=== PATIENT | female | born 1950 | race Caucasian/White ===

== ENCOUNTER 2016-11-17 12:43 | Emergency (ER) | payer MEDICARE ==
[2016-11-17 12:52] VITALS: BP 137/62
--- NOTE | 2016-11-17 13:57 | ED ---
Abdominal Pain/Female - HPI Summary HPI Summary: Patient presents to the with CC of left sided flank pain radiating to the LLQ with symptoms of incompletion of urination. Hx of colon resection and diverticulitis. She denies N/V/C/D. Denies fevers, sweats or chills. Denies urinary burning, urgency or frequency. She has never had a kidney stone before. The pain is 5/10, constant, described as an ache, better with rest and worse with movement. She is eating and drinking OK and denies any other complaints at this time. Last documented CT scan 2009. She is otherwise healthy , endorses multiple allergies and is a non-smoker. - History of Current Complaint Chief Complaint: UCAbdominalPain Stated Complaint: ABDOMINAL PAIN Time Seen by Provider: 11/17/16 12:58 Hx Obtained From: Patient ?: No Onset/Duration: Sudden Onset Timing: Constant Severity Initially: Moderate Severity Currently: Moderate Pain Intensity: 5 Pain Scale Used: 0-10 Numeric Location: Flank Radiates: Yes Radiates to: LLQ Character: Sharp, Cramping Aggravating Factor(s): Nothing Alleviating Factor(s): Position Associated Signs and Symptoms: Positive: Urinary Symptoms - Risk Factors Ectopic Risk Factor: Maternal Age ^ 30 Ovarian Torsion Risk Factor: Negative Allergies/Adverse Reactions: Allergies Allergy/AdvReac Type Severity Reaction Status Date / Time Acetaminophen [From Percocet] Allergy Rash Verified 11/17/16 12:47 Morphine Allergy LOWERED Verified 11/17/16 12:47 RESP RATE Oxycodone [From Percocet] Allergy Rash Verified 11/17/16 12:47 Penicillins [PCN] Allergy Rash Verified 11/17/16 12:47 Sulfa Antibiotics Allergy Rash Verified 11/17/16 12:47 PMH/Surg Hx/FS Hx/Imm Hx Previously Healthy: Yes Endocrine/Hematology History: Reports: 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 Denies: Hx Diabetes Cardiovascular History: Denies: Hx Hypertension GI History: Reports: Other GI Disorders - DIVERTICULITIS- HAD SURGERY FOR- NO PROBLEMS SINCE History: Denies: Hx Renal Disease Musculoskeletal History: Reports: Other Musculoskeletal History - 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 BUT ALSO AFFECTS THE LEFT Sensory History: Reports: Hx Contacts or Glasses - GLASSES-DOESN'T WEAR ALL THE TIME Denies: Hx Hearing Aid Opthamlomology History: Reports: Hx Contacts or Glasses - GLASSES-DOESN'T WEAR ALL THE TIME Neurological History: Reports: Hx Migraine - MONTHLY- VISUAL - Cancer History Cancer Type, Location and Year: Basal cell skin, 2004 Hx Chemotherapy: No Hx Radiation Therapy: No - Surgical History Surgery Procedure, Year, and Place: Colon resection 2010 [facility] [place] [address] [place], R inguinal hernia repair with patch, several surgeries for endometriosis Hx Anesthesia Reactions: Yes - STATES RECEIVED MORPHINE- LOWERED RESP RATE- STATES HAD TO REVERSE THE MED - Immunization History Hx Pertussis Vaccination: No Immunizations Up to Date: Unable to Obtain/Confirm Infectious Disease History: No Infectious Disease History: Denies: Hx Clostridium Difficile, Hx Hepatitis, Hx Human Immunodeficiency Virus (HIV), Hx of Known/Suspected MRSA, Hx Shingles, Hx Tuberculosis, Hx Known/ Suspected VRE, Hx Known/Suspected VRSA, History Other Infectious Disease, Traveled Outside the in Last 30 Days - Social History Occupation: Unemployed Lives: With Family Alcohol Use: None Hx Substance Use: No Substance Use Type: Reports: None Hx Tobacco Use: No Smoking Status (MU): Never Smoked Tobacco Review of Systems Constitutional: Negative Eyes: Negative Cardiovascular: Negative Respiratory: Negative Positive: Abdominal Pain Positive: other - feeling of incomplete voiding Musculoskeletal: Negative Skin: Negative Neurological: Negative Psychological: Normal All Other Systems Reviewed And Are Negative: Yes Physical Exam Triage Information Reviewed: Yes Vital Signs On Initial Exam: Initial Vitals Temp Pulse Resp BP Pulse Ox 97 F 58 17 137/62 100 11/17/16 12:48 11/17/16 12:48 11/17/16 12:48 11/17/16 12:48 11/17/16 12:48 Vital Signs Reviewed: Yes Appearance: Positive: Well-Appearing, No Pain Distress, Well-Nourished Skin: Positive: Warm, Skin Color Reflects Adequate Perfusion Head/Face: Positive: Normal Head/Face Inspection, TMJ Tenderness Eyes: Positive: Normal, RAMAN, Conjunctiva Clear Neck: Positive: Supple, Nontender, No Lymphadenopathy Respiratory/Lung Sounds: Positive: Clear to Auscultation, Breath Sounds Present Cardiovascular: Positive: Normal, RRR, Pulses are Symmetrical in both Upper and Lower Extremities Abdomen Description: Positive: Soft, Other: - tenderness in the LLQ and flank pain Bowel Sounds: Positive: Present Musculoskeletal: Positive: Strength/ROM Intact Neurological: Positive: Sensory/Motor Intact, Speech Normal Psychiatric: Positive: Normal AVPU Assessment: Alert - [place] Coma Scale Best Eye Response: 4 - Spontaneous Best Motor Response: 6 - Obeys Commands Best Verbal Response: 5 - Oriented Diagnostics - Vital Signs Vital Signs Temp Pulse Resp BP Pulse Ox 11/17/16 12:48 97 F 58 17 137/62 100 - Laboratory Lab Results: Lab Results 11/17/16 Range/Units 13:23 POC Urine Color Yellow POC Urine Clarity Clear POC Urine pH 6.0 (5-9) POC Ur Specif [place] <= 1.005 L (1.010-1.030) POC Urine Protein Negative (Negative) POC Ur Glucose (UA) Negative (Negative) POC Urine Ketones Negative (Negative) POC Urine Blood Negative (Negative) POC Urine Nitrite Negative (Negative) POC Urine Bilirubin Negative (Negative) POC Urine Urobilinogen 0.2 (Negative) POC U Leukocyte Esteras Negative (Negative) Lab Statement: Any lab studies that have been ordered have been reviewed, and results considered in the medical decision making process. Abdominal Pain Fem Course/Dx - Course Course Of Treatment: Pain in left flank radiating to the LLQ with feelings of incomplete voiding. No hx of kidney stone; + hx of diverticulitis and colon resection. Based on symptoms and with the imaging available in the UC, decided a CT abd/pelvis without contrast to look for stone since that was most likely dx. However, UA negative and CT showed (below). D/t history of tic and resection, she will IV contrast and labs to check kidney function prior to image and assess colitis. Patient is made aware and is OK to follow up in the ED today. IMPRESSION: 1. Although incompletely evaluated without IV or oral contrast, there appears to be a. segment of mild wall thickening and colitis involving the distal transverse colon. extending to the descending colon. Please correlate to signs and symptoms of colitis. 2. Scattered colonic diverticula without focal inflammatory change. 3. Additional chronic, degenerative and iatrogenic findings described in the body of the. report. - Diagnoses Differential Diagnosis: Positive: Bowel Obstruction, Constipation, Diverticulitis, Renal Colic Provider Diagnoses: Abdominal pain Discharge - Discharge Plan Condition: Stable Disposition: HOME Patient Education Materials: Abdominal Pain (ED), Colitis (ED) Referrals: Kevin Sears MD [Primary Care Provider] - Additional Instructions: Please follow up in the Emergency Room for better imaging.
--- NOTE | 2016-11-17 14:13 | RAD ---
CLINICAL HISTORY: Left flank pain COMPARISON: Similar CT examination dated July 17, 2014 TECHNIQUE: Noncontrast CT examination of the abdomen and pelvis from the lung bases through the initial tuberosities. FINDINGS: VISUALIZED LUNG BASES: The visualized lung bases are grossly clear. There is no pleural effusion. ABDOMEN AND PELVIS: Evaluation of the solid organs and vasculature is limited without intravenous contrast. The liver, spleen, pancreas and adrenal glands are grossly normal in appearance. The gallbladder is normal. The kidneys are normal in appearance without focal mass, calcification or signs of hydronephrosis. The small and large bowel are not distended.The patient's normal appendix is identified in the right lower quadrant with gas in the lumen measuring 5 mm in diameter (image 134). There is surgical material at the rectosigmoid colon presumably at the anastomosis site. Scattered rectosigmoid diverticula are seen, some with inspissated contrast but none exhibit focal inflammatory change. At the distal transverse colon extending to the descending colon there is mild bowel wall thickening measuring up to 7 mm in diameter (for example axial image 54). There is very mild pericolonic infiltration of the mesenteric fat. There is no gross retroperitoneal or mesenteric lymphadenopathy. The pelvic viscera is normal in appearance. The mildly calcified abdominal aorta and iliac arteries are normal in course and diameter. Degenerative changes include multilevel loss of intervertebral disc height involving the lower thoracic and lumbar spine.There are no sinister bone lesions. IMPRESSION: 1. Although incompletely evaluated without IV or oral contrast, there appears to be a segment of mild wall thickening and colitis involving the distal transverse colon extending to the descending colon. Please correlate to signs and symptoms of colitis. 2. Scattered colonic diverticula without focal inflammatory change. 3. Additional chronic, degenerative and iatrogenic findings described in the body of the report.
== END 2016-11-17 14:45 | disposition home or self-care (01) ==
LOC: UCEAST 12:43
DX: R10.32 Left lower quadrant pain (principal); Z90.49 Acquired absence of other specified parts of digestive tract; Z88.6 Allergy status to analgesic agent; Z88.5 Allergy status to narcotic agent; Z88.0 Allergy status to penicillin; Z88.2 Allergy status to sulfonamides; E05.00 Thyrotoxicosis with diffuse goiter without thyrotoxic crisis or storm; G43.909 Migraine, unspecified, not intractable, without status migrainosus
CPT/HCPCS: 74176; 81003; 99211; G0463

== ENCOUNTER 2016-11-17 15:18 | Emergency (ER) | payer MEDICARE ==
--- NOTE | 2016-11-17 16:57 | ED ---
Abdominal Pain/Female - HPI Summary HPI Summary: Pt sent here by w/ LLQ radiating into Lt lower back x 2 days. Had a normal stool yesterday but ate a lot of tomatoes w/ seeds and granola - worried she overate and this was causing pain so took dulolax last night - had some relief this morning w/ loose stool. Pain is 6/10 now. Denies fever, chills, N/V/D, hematochezia, mucous stools. Report this feels like diverticulitis she's had in the past - sore, aching pain. Better with lying down/leaning back at times. Tried tylenol last night which helped as well. Denies dysuria, vaginal irritation or d/c. H/o ovarian cysts - this does not feel the same. Had CT w/o contrast and U/A at and both were negative for findings of a kidney stone. CT was performed as well which revealed distal transverse colon and descending colon wall thickening, measuring up to 7mm. No leonor inflammation of diverticular however CT was performed w/o contrast. No signs of perforation. 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 Cannot take NSAID's. - History of Current Complaint Chief Complaint: EDAbdPain Stated Complaint: STOMACH/ABD PAIN Time Seen by Provider: 11/17/16 16:27 Hx Obtained From: Patient Pain Intensity: 6 Allergies/Adverse Reactions: Allergies Allergy/AdvReac Type Severity Reaction Status Date / Time Acetaminophen [From Percocet] Allergy Rash Verified 11/17/16 12:47 Morphine Allergy LOWERED Verified 11/17/16 12:47 RESP RATE Oxycodone [From Percocet] Allergy Rash Verified 11/17/16 12:47 Penicillins [PCN] Allergy Rash Verified 11/17/16 12:47 Sulfa Antibiotics Allergy Rash Verified 11/17/16 12:47 PMH/Surg Hx/FS Hx/Imm Hx Previously Healthy: Yes Endocrine/Hematology History: Reports: 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 Denies: Hx Anticoagulant Therapy, Hx Blood Disorders, Hx Diabetes Cardiovascular History: Denies: Hx Hypertension GI History: Reports: Other GI Disorders - DIVERTICULITIS- HAD SURGERY FOR- NO PROBLEMS SINCE History: Denies: Hx Renal Disease Musculoskeletal History: Reports: Other Musculoskeletal History - 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 BUT ALSO AFFECTS THE LEFT Sensory History: Reports: Hx Contacts or Glasses - GLASSES-DOESN'T WEAR ALL THE TIME Denies: Hx Hearing Aid Opthamlomology History: Reports: Hx Contacts or Glasses - GLASSES-DOESN'T WEAR ALL THE TIME Neurological History: Reports: Hx Migraine - MONTHLY- VISUAL - Cancer History Cancer Type, Location and Year: Basal cell skin, 2004 Hx Chemotherapy: No Hx Radiation Therapy: No - Surgical History Surgery Procedure, Year, and Place: Colon resection [place] [facility] [place], R inguinal hernia repair with patch, several surgeries for endometriosis Hx Anesthesia Reactions: Yes - STATES RECEIVED MORPHINE- LOWERED RESP RATE- STATES HAD TO REVERSE THE MED Infectious Disease History: Denies: Hx Clostridium Difficile, Hx Hepatitis, Hx Human Immunodeficiency Virus (HIV), Hx of Known/Suspected MRSA, Hx Shingles, Hx Tuberculosis, Hx Known/ Suspected VRE, Hx Known/Suspected VRSA, History Other Infectious Disease, Traveled Outside the in Last 30 Days - Family History Known Family History: Positive: None - Social History Occupation: Employed Full-time - [employer] Lives: With Family - Alcohol Use: Rare Hx Substance Use: No Substance Use Type: Reports: None Hx Tobacco Use: No Smoking Status (MU): Never Smoked Tobacco Review of Systems Constitutional: Negative Negative: Fever, Chills Eyes: Other - see HPI Cardiovascular: Negative Respiratory: Negative Gastrointestinal: Other - see HPI Negative: burning, dysuria, discharge, frequency Musculoskeletal: Negative Skin: Negative Neurological: Negative Psychological: Normal All Other Systems Reviewed And Are Negative: Yes Physical Exam Triage Information Reviewed: Yes Vital Signs On Initial Exam: Initial Vitals Temp Pulse Resp BP Pulse Ox 96.2 F 54 20 159/74 100 11/17/16 15:26 11/17/16 15:26 11/17/16 15:26 11/17/16 15:26 11/17/16 15:26 Vital Signs Reviewed: Yes Appearance: Positive: Well-Appearing, No Pain Distress, Well-Nourished Skin: Positive: Warm, Dry Head/Face: Positive: Normal Head/Face Inspection Eyes: Positive: Normal, EOMI, Conjunctiva Clear ENT: Positive: Hearing grossly normal, Pharynx normal - mucosa moist Neck: Positive: Supple - no gross thyromegaly Respiratory/Lung Sounds: Positive: Clear to Auscultation, Breath Sounds Present Cardiovascular: Positive: Normal, RRR Abdomen Description: Positive: No Organomegaly, Soft, Other: - TTP over LUQ, Lt side and LLQ - no rebounding. Negative: CVA Tenderness (R), CVA Tenderness (L) Bowel Sounds: Positive: Present Musculoskeletal: Positive: Normal, Strength/ROM Intact Neurological: Positive: Normal, Sensory/Motor Intact, Alert, Oriented to Person Place, Time, CN Intact II-III Psychiatric: Positive: Normal Diagnostics - Vital Signs Vital Signs Temp Pulse Resp BP Pulse Ox 11/17/16 15:26 96.2 F 54 20 159/74 100 - Laboratory Result Diagrams: 11/17/16 17:41 11/17/16 17:41 Lab Statement: Any lab studies that have been ordered have been reviewed, and results considered in the medical decision making process. Abdominal Pain Fem Course/Dx - Course Course Of Treatment: Pt here w/ LLQ pain x 2 days. See HPI for details. Concern for diverticulitis however CT w/o contrast does not reveal inflammation here. Labs are WNL. Discussed option to try bowel rest and return if sx persist or worsen or proceed to CT ab/pelvis w/ contrast - pt and agree w/ the latter. Ordered NS via IV and NPO as her CT w/o contrast shows wall thickening such as colitis. May be early sx of diverticulitis w/ h/o eating seeds/nuts yesterday however could have other disease process unidentified on CT w/o constrast. Offered patient pain meds before leaving - she declines. Signed out to Yodit Wayne PA-C at 19:00. - Diagnoses Provider Diagnoses: Abdominal pain Discharge - Discharge Plan Condition: Stable Disposition: OTHER Discharge Disposition Comment: signed out to Yodit Wayne PA-C
[2016-11-17 17:50] LABS: Hematocrit 38 % (35-47); Mean Corpuscular HGB Conc 34 g/dl (31-36); Mean Corpuscular Hemoglobin 30 pg (27-31); Mean Corpuscular Volume 89 fL (80-97); Mean Platelet Volume 9 um3 (7.4-10.4); Red Blood Count 4.28 10^6/ul (4.0-5.4); Red Cell Distribution Width 13 % (10.5-15); White Blood Count 5.2 10^3/ul (3.5-10.8)
[2016-11-17 18:03] LABS: ALT 13 U/L (7-52); Albumin 4.3 g/dL (3.2-5.2); Alkaline Phosphatase 85 U/L (34-104); Amylase 63 U/L (29-103); BUN/Creatinine Ratio 13.9 (8-20); Blood Urea Nitrogen 10 mg/dL (6-24); C Reactive Protein 1.51 mg/L (< 5.00); CO2 Carbon Dioxide 27 mmol/L (22-32); Calcium 9.9 mg/dL (8.6-10.3); Chloride 103 mmol/L (101-111); EGFR African American 104.2 (>60); Globulin 3.8 g/dL (2-4); Glucose 86 mg/dL (70-100); Lipase 15 U/L (11.0-82.0); Sodium 135 mmol/L (133-145); Total Protein 8.1 g/dL (6.4-8.9)
[2016-11-17 18:14] LABS: Anion Gap 5 mmol/L (2-11)
[2016-11-17] MEDS ORDERED: NS 0.9% 1000 ML* 1,000 ML IV ONE (18:48)
[2016-11-17] MEDS ORDERED: Iohexol 300* (CONTRAST) 10 ML SDV IV ONE (19:13)
--- NOTE | 2016-11-17 21:58 | RAD ---
CLINICAL HISTORY: 2 days of left lower quadrant pain. Relevant surgical history includes colon resection in 2011, right inguinal hernia repair and "several surgeries for endometriosis in the 1990s" COMPARISON: Most recent comparison CT is dated July 17, 2014 TECHNIQUE: Contrast enhanced CT examination of the abdomen and pelvis from the lung bases through the initial tuberosities. The patient received 89 mL Omnipaque 300 intravenously prior to imaging.The patient received oral contrast as well prior to imaging. FINDINGS: VISUALIZED LUNG BASES: The visualized lung bases are grossly clear. There is no pleural effusion. ABDOMEN AND PELVIS: The liver measures 20.5 cm and greatest cephalocaudal projection (coronal image 34). Otherwise the liver is homogenous in attenuation and the surface is smooth. The spleen, pancreas and adrenal glands are grossly normal in appearance. The gallbladder is normal. The kidneys are normal in appearance without focal mass, calcification or signs of hydronephrosis. Contrast is excreted symmetrically and promptly bilaterally on the delayed phase images. The oral contrast has progressed as far as the rectum. The small and large bowel are not distended. The patient's normal appendix is identified in the right lower quadrant with contrast in the lumen (axial image 68 and sagittal image 54). There is surgical material at the rectosigmoid colon. Proximal to this there is a segment of distal colon exhibiting questionable bowel wall thickening up to 5 mm in thickness (axial image 65). There is no significant pericolonic inflammatory stranding or drainable fluid collection. There are scattered rectosigmoid diverticula.. There is no gross retroperitoneal or mesenteric lymphadenopathy. The pelvic viscera is normal in appearance. The abdominal aorta and iliac arteries are normal in course and diameter. Degenerative changes include multilevel loss of intervertebral disc height involving the lower thoracic and lumbar spine.There are no sinister bone lesions. IMPRESSION: 1. There is questionable segment of mild distal colonic bowel wall thickening at the junction of the descending colon and remaining rectosigmoid colon in the presence of scattered diverticula. Potentially this could be due to diverticulitis or other mild colitis or simply be the consequence of underdistention. 2. Mild hepatomegaly is noted of uncertain clinical significance. 3. Additional chronic, degenerative and iatrogenic findings described in the body the report.
--- NOTE | 2016-11-17 23:05 | PN ---
Progress Note - Progress Note Date of Service: 11/17/16 Note: Patient was a sign out from Laure Amaral PA-C pending CT with contrast of abd/ pelvis results. Results showed:1. There is questionable segment of mild distal colonic bowel wall thickening at the junction of the descending colon and remaining rectosigmoid colon in the presence of scattered diverticula. Potentially this could be due to diverticulitis or other mild colitis or simply be the consequence of underdistention. 2. Mild hepatomegaly is noted of uncertain clinical significance. 3. Additional chronic, degenerative and iatrogenic findings described in the body the report. Patient was in minimal pain at time of evaluation. RRR and lung CTA b/l. no new or worsening symptoms since arrival. Aware of current plan. Understands and agrees. Will be given antibiotics, cipro/flagyl at this time as it appears to be the beginnings of diverticulitis with + history including resected colon. Although normal labs without fever or WBC. Discharge: stable, home. follow up GI. aware of worsening signs and symptoms. take medication as prescribed, ibuprofen for pain.
[2016-11-17] MEDS ORDERED: metroNIDAZOLE TAB* 250 MG PO ONE (23:11)
[2016-11-17] MEDS ORDERED: Ciprofloxacin TAB* 500 MG PO ONE (23:11)
[2016-11-18 00:11] VITALS: BP 161/77
== END 2016-11-18 00:11 | disposition home or self-care (01) ==
LOC: ED 15:18
DX: R10.32 Left lower quadrant pain (principal)
CPT/HCPCS: 36415; 74177; 80053; 82150; 83605; 83690; 85025; 86140; 99284; A9270-GY; Q9967

== ENCOUNTER 2018-07-27 19:09 | Emergency (ER) | payer MEDICARE ==
[2018-07-27 20:28] LABS: ABS Basophils 0.1 10^3/ul (0-0.2); ABS Eosinophils 0.2 10^3/ul (0-0.6); ABS Lymphocytes 1.4 10^3/ul (1.0-4.8); ABS Monocytes 0.5 10^3/ul (0-0.8); ABS Nucleated RBC 0 10^3/ul; Hematocrit 37 % (35-47); Hemoglobin 12.6 g/dL (12.0-16.0); Lymphocyte % 23.1 %; Mean Corpuscular HGB Conc 34 g/dL (31-36); Mean Corpuscular Hemoglobin 30 pg (27-31); Mean Corpuscular Volume 89 fL (80-97); Mean Platelet Volume 9.1 fL (7.4-10.4); Nucleated Red Blood Cells % 0; Platelet Count 167 10^3/uL (150-450); Red Blood Count 4.17 10^6 /uL (3.70-4.87); Red Cell Distribution Width 13 % (10.5-15); White Blood Count 6.2 10^3/uL (3.5-10.8)
[2018-07-27 20:36] LABS: INR 1.09 (0.82-1.09)
[2018-07-27 20:50] LABS: Albumin 4.4 g/dL (3.2-5.2); Albumin/Globulin Ratio 1.2 (1-3); C Reactive Protein 11.17 mg/L (<8.01); Calcium 9.7 mg/dL (8.6-10.3); EGFR African American 87.6 (>60); EGFR Non-African American 72.4 (>60); Globulin 3.6 g/dL (2-4); Total Bilirubin 0.4 mg/dL (0.2-1.0)
[2018-07-27] MEDS ORDERED: NS 0.9% 1000 ML** 1,000 ML IV ONE (21:15)
[2018-07-27] MEDS ORDERED: Ondansetron INJ* 2 MG/ML VIAL IV ONE (21:15)
--- NOTE | 2018-07-27 21:47 | ED ---
Abdominal Pain/Female - HPI Summary HPI Summary: Patient complains of right lower quadrant pain and chills starting today. Abdominal pain described constant, at worst 8/10. Currently rated 4/10. Denies fever, cough, sore throat, ALDANA, neck stiffness, CP, SOB, N/V/D, change in urine, change in BM, vaginal symptoms. History is none. Abdominal surgical history is none. - History of Current Complaint Chief Complaint: EDAbdPain Stated Complaint: "I THINK IM HAVING A APPENDICITIS ATTACK" PER PT Time Seen by Provider: 07/27/18 20:53 Hx Obtained From: Patient Onset/Duration: Sudden Onset, Lasting Hours Timing: Constant Severity Initially: Severe Severity Currently: Severe Pain Intensity: 8 Pain Scale Used: 0-10 Numeric Location: Discrete At: RLQ Radiates: No Character: Sharp Aggravating Factor(s): Nothing Alleviating Factor(s): Nothing Associated Signs and Symptoms: Positive: Negative Allergies/Adverse Reactions: Allergies Allergy/AdvReac Type Severity Reaction Status Date / Time MS Acetaminophen Allergy Rash Verified 11/17/16 12:47 [From Percocet] MS Morphine [Morphine] Allergy LOWERED Verified 11/17/16 12:47 RESP RATE MS Oxycodone [From Percocet] Allergy Rash Verified 11/17/16 12:47 MS Penicillins [PCN] Allergy Rash Verified 11/17/16 12:47 MS Sulfa Antibiotics Allergy Rash Verified 11/17/16 12:47 [Sulfa Antibiotics] PMH/Surg Hx/FS Hx/Imm Hx Endocrine/Hematology History: Reports: 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 Denies: Hx Anticoagulant Therapy, Hx Blood Disorders, Hx Diabetes Cardiovascular History: Denies: Hx Hypertension GI History: Reports: Other GI Disorders - DIVERTICULITIS- HAD SURGERY FOR- NO PROBLEMS SINCE History: Denies: Hx Dialysis, Hx Renal Disease Musculoskeletal History: Reports: Other Musculoskeletal History - 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 BUT ALSO AFFECTS THE LEFT Sensory History: Reports: Hx Contacts or Glasses - GLASSES-DOESN'T WEAR ALL THE TIME Denies: Hx Hearing Aid Opthamlomology History: Reports: Hx Contacts or Glasses - GLASSES-DOESN'T WEAR ALL THE TIME Neurological History: Reports: Hx Migraine - MONTHLY- VISUAL - Cancer History Cancer Type, Location and Year: Basal cell skin, 2004 Hx Chemotherapy: No Hx Radiation Therapy: No - Surgical History Surgery Procedure, Year, and Place: Colon resection 2010 [facility] [place] Dr [place], R inguinal hernia repair with patch (1 YEAR AFTER COLON RESECTION) , several surgeries for endometriosis 1990s Hx Anesthesia Reactions: Yes - STATES RECEIVED MORPHINE- LOWERED RESP RATE- STATES HAD TO REVERSE THE MED Infectious Disease History: No Infectious Disease History: Denies: Hx Clostridium Difficile, Hx Hepatitis, Hx Human Immunodeficiency Virus (HIV), Hx of Known/Suspected MRSA, Hx Shingles, Hx Tuberculosis, Hx Known/ Suspected VRE, Hx Known/Suspected VRSA, History Other Infectious Disease, Traveled Outside the [place] in Last 30 Days - Family History Known Family History: Positive: None - Social History Alcohol Use: Rare Hx Substance Use: No Substance Use Type: Reports: None Hx Tobacco Use: No Smoking Status (MU): Never Smoked Tobacco Review of Systems Positive: Chills Eyes: Negative ENT: Negative Cardiovascular: Negative Respiratory: Negative Gastrointestinal: Negative Genitourinary: Negative Musculoskeletal: Negative Skin: Negative Neurological: Negative Psychological: Normal All Other Systems Reviewed And Are Negative: Yes Physical Exam - Summary Physical Exam Summary: Tender to palpation right lower quadrant. Abdominal exam was unremarkable. Physical exam otherwise unremarkable. Triage Information Reviewed: Yes Vital Signs On Initial Exam: Initial Vitals Temp Pulse Resp BP Pulse Ox 101.5 F 63 18 188/68 98 07/27/18 19:24 07/27/18 19:24 07/27/18 19:24 07/27/18 19:24 07/27/18 19:24 Vital Signs Reviewed: Yes Appearance: Positive: Well-Appearing Skin: Positive: Warm Head/Face: Positive: Normal Head/Face Inspection Eyes: Positive: Normal Neck: Positive: Supple Respiratory/Lung Sounds: Positive: Clear to Auscultation Cardiovascular: Positive: Normal Abdomen Description: Positive: Other: Musculoskeletal: Positive: Normal Neurological: Positive: Normal Psychiatric: Positive: Normal AVPU Assessment: Alert - Perri Coma Scale Best Eye Response: 4 - Spontaneous Best Motor Response: 6 - Obeys Commands Best Verbal Response: 5 - Oriented Coma Scale Total: 15 Diagnostics - Vital Signs Vital Signs Temp Pulse Resp BP Pulse Ox 07/27/18 21:19 99.9 F 07/27/18 21:16 64 170/73 98 07/27/18 21:00 58 97 07/27/18 20:46 57 97 07/27/18 19:24 101.5 F 63 18 188/68 98 - Laboratory Lab Results: Lab Results 07/27/18 07/27/18 07/27/18 Range/Units 20:21 20:21 20:21 WBC 6.2 (3.5-10.8) 10^3/uL RBC 4.17 (3.70-4.87) 10^6 /uL Hgb 12.6 (12.0-16.0) g/dL Hct 37 (35-47) % MCV 89 (80-97) fL MCH 30 (27-31) pg MCHC 34 (31-36) g/dL RDW 13 (10.5-15) % Plt Count 167 (150-450) 10^3/uL MPV 9.1 (7.4-10.4) fL Neut % (Auto) 64.5 % Lymph % (Auto) 23.1 % Barrow % (Auto) 8.6 % Eos % (Auto) 3.0 % Baso % (Auto) 0.8 % Absolute Neuts (auto) 4.0 (1.5-7.7) 10^3/ul Absolute Lymphs (auto) 1.4 (1.0-4.8) 10^3/ul Absolute Monos (auto) 0.5 (0-0.8) 10^3/ul Absolute Eos (auto) 0.2 (0-0.6) 10^3/ul Absolute Basos (auto) 0.1 (0-0.2) 10^3/ul Absolute Nucleated RBC 0 10^3/ul Nucleated RBC % 0 INR (Anticoag Therapy) (0.82-1.09) Sodium 137 (135-145) mmol/L Potassium 4.0 (3.5-5.0) mmol/L Chloride 103 (101-111) mmol/L Carbon Dioxide 29 (22-32) mmol/L Anion Gap 5 (2-11) mmol/L BUN 15 (6-24) mg/dL Creatinine 0.79 (0.51-0.95) mg/dL Est GFR ( Amer) 87.6 (>60) Est GFR (Non-Af Amer) 72.4 (>60) BUN/Creatinine Ratio 19.0 (8-20) Glucose 102 H (70-100) mg/dL Lactic Acid 0.5 (0.5-2.0) mmol/L Calcium 9.7 (8.6-10.3) mg/dL Total Bilirubin 0.40 (0.2-1.0) mg/dL AST 13 (13-39) U/L ALT 8 (7-52) U/L Alkaline Phosphatase 98 (34-104) U/L C-Reactive Protein 11.17 H (<8.01) mg/L Total Protein 8.0 (6.4-8.9) g/dL Albumin 4.4 (3.2-5.2) g/dL Globulin 3.6 (2-4) g/dL Albumin/Globulin Ratio 1.2 (1-3) Lipase 22 (11.0-82.0) U/L 07/27/18 Range/Units 20:21 WBC (3.5-10.8) 10^3/uL RBC (3.70-4.87) 10^6 /uL Hgb (12.0-16.0) g/dL Hct (35-47) % MCV (80-97) fL MCH (27-31) pg MCHC (31-36) g/dL RDW (10.5-15) % Plt Count (150-450) 10^3/uL MPV (7.4-10.4) fL Neut % (Auto) % Lymph % (Auto) % Barrow % (Auto) % Eos % (Auto) % Baso % (Auto) % Absolute Neuts (auto) (1.5-7.7) 10^3/ul Absolute Lymphs (auto) (1.0-4.8) 10^3/ul Absolute Monos (auto) (0-0.8) 10^3/ul Absolute Eos (auto) (0-0.6) 10^3/ul Absolute Basos (auto) (0-0.2) 10^3/ul Absolute Nucleated RBC 10^3/ul Nucleated RBC % INR (Anticoag Therapy) 1.09 (0.82-1.09) Sodium (135-145) mmol/L Potassium (3.5-5.0) mmol/L Chloride (101-111) mmol/L Carbon Dioxide (22-32) mmol/L Anion Gap (2-11) mmol/L BUN (6-24) mg/dL Creatinine (0.51-0.95) mg/dL Est GFR ( Amer) (>60) Est GFR (Non-Af Amer) (>60) BUN/Creatinine Ratio (8-20) Glucose (70-100) mg/dL Lactic Acid (0.5-2.0) mmol/L Calcium (8.6-10.3) mg/dL Total Bilirubin (0.2-1.0) mg/dL AST (13-39) U/L ALT (7-52) U/L Alkaline Phosphatase (34-104) U/L C-Reactive Protein (<8.01) mg/L Total Protein (6.4-8.9) g/dL Albumin (3.2-5.2) g/dL Globulin (2-4) g/dL Albumin/Globulin Ratio (1-3) Lipase (11.0-82.0) U/L Result Diagrams: 07/27/18 20:21 07/27/18 20:21 Lab Statement: Any lab studies that have been ordered have been reviewed, and results considered in the medical decision making process. Abdominal Pain Fem Course/Dx - Course Course Of Treatment: Patient complains of right lower quadrant pain and chills starting today. Abdominal pain described constant, at worst 8/10. Currently rated 4/10. Denies fever, cough, sore throat, ALDANA, neck stiffness, CP, SOB, N/V/ D, change in urine, change in BM, vaginal symptoms. History is none. Abdominal surgical history is none. Physical exam:Tender to palpation right lower quadrant. Abdominal exam was unremarkable. Physical exam otherwise unremarkable. Temperature 100.8, otherwise Vital signs within normal limits. Labs unremarkable. CT abdomen and pelvis with contrast positive for diverticulitis. Patient started on Cipro and Flagyl here in the ED. Rx for same. Patient understands and approves of plan. - Diagnoses Provider Diagnoses: Diverticulitis Discharge - Sign-Out/Discharge Documenting (check all that apply): Patient Departure Patient Received Moderate/Deep Sedation with Procedure: No - Discharge Plan Condition: Stable Disposition: HOME Prescriptions: Ciprofloxacin HCl [Cipro] 500 mg PO BID 10 Days #20 tablet metroNIDAZOLE [Flagyl 500 MG TAB] 500 mg PO TID 10 Days #30 tab Oxycodone HCl 5 mg PO Q6H PRN 2 Days #6 tablet MDD 3 tabs PRN Reason: Pain Patient Education Materials: Diverticulitis (ED), Diverticulitis Diet (ED) Referrals: Kevin Sears MD [Primary Care Provider] - Additional Instructions: Liquid diet and low fiber diet until symptoms resolve. Take antibiotics as directed. Follow-up with primary care. Return to the ED for any new or worsening symptoms. - Billing Disposition and Condition Condition: STABLE Disposition: Home
[2018-07-27] MEDS ORDERED: Iohexol 300* (CONTRAST) 10 ML SDV IV ONE (22:03)
[2018-07-27 22:05] LABS: Urine Appearance Clear; Urine Bilirubin Negative (Negative); Urine Blood Negative (Negative); Urine Color Yellow; Urine Glucose Negative (Negative); Urine Ketones Negative (Negative); Urine Nitrite Negative (Negative); Urine Protein Negative (Negative); Urine Urobilinogen Negative (Negative)
[2018-07-27] MEDS ORDERED: Acetaminophen TAB* 325 MG PO ONE (23:18)
[2018-07-27] MEDS ORDERED: metroNIDAZOLE TAB* 250 MG PO ONE (23:28)
[2018-07-27] MEDS ORDERED: Ciprofloxacin TAB* 500 MG PO ONE (23:28)
[2018-07-28 00:16] VITALS: BP 142/56
== END 2018-07-28 00:15 | disposition home or self-care (01) ==
LOC: ED 19:09
DX: K57.92 Diverticulitis of intestine, part unspecified, without perforation or abscess without bleeding (principal); E05.00 Thyrotoxicosis with diffuse goiter without thyrotoxic crisis or storm; Z88.1 Allergy status to other antibiotic agents; Z88.5 Allergy status to narcotic agent; Z88.0 Allergy status to penicillin; Z88.2 Allergy status to sulfonamides
CPT/HCPCS: 36415; 74177; 80053; 81003; 83605; 83690; 85025; 85610; 86140; 93005; 96361; 96374; 96375; 99283; A9270-GY; J2405; Q9967

== ENCOUNTER 2019-04-24 13:49 | Emergency (ER) | payer MEDICARE ==
--- OUTSIDE RECORDS SUMMARY | 2019-04-24 14:56 | XMS REPORT | Continuity of Care Document ---
:1950 External Reference #:[id number] Author Name Judi Man NP Address [address] [place] [address] Care Team Providers Name Role Phone Oren Villalta MD - Care Team Information Web Marketing Analyst [phone] Gastroenterology Problems Active Problems Provider Date Diverticular disease of colon Kevin Sears M.D. Onset: 05/11/2011 History of polyp of colon Kevin Sears M.D. Onset: 05/11/2011 Non-neoplastic nevus Kevin Sears M.D. Onset: 01/29/2012 Postmenopausal osteoporosis Kevin Sears M.D. Onset: 11/02/2016 Essential hypertension Kevin Sears M.D. Onset: 07/19/2017 Osteochondropathy Kevin Sears M.D. Onset: 05/20/2018 Migraine variants, not intractable Kevin Sears M.D. Onset: 05/20/2018 Depressive disorder Kevin Sears M.D. Onset: 05/20/2018 Aortic valve disorder Kevin Sears M.D. Onset: 05/20/2018 Carotid artery occlusion Kevin Sears M.D. Onset: 05/20/2018 Palpitations Kevin Sears M.D. Onset: 03/27/2019 Hypothyroidism Kevin Sears M.D. Onset: 03/27/2019 Cough Kevin Sears M.D. Onset: 03/27/2019 Urinary tract infectious disease Kevin Sears M.D. Onset: 11/04/2018 Social History Type Date Description Comments Sex Unknown Tobacco Use Start: Unknown Nonsmoker ETOH Use Rare Tobacco Use Start: Unknown Patient has never smoked Smoking Status Reviewed: 04/21/19 Patient has never smoked Allergies, Adverse Reactions, Alerts Active Allergies Reaction Severity Comments Date Sulfa Drugs Penicillin 07/23/2006 Adhesive 07/30/2018 Codeine ALDANA 02/04/2019 Cyclobenzaprine terrible ALDANA 02/04/2019 Medications Active Medications SIG Qnty Indications Ordering Date Provider Levaquin take one tablet 7tabs J18.9 Judi Owen 04/21/2019 750mg Tablets daily by mouth x 7 REGINA Man days Diflucan take 1 tablet by 2tabs J18.9 Judi Owen 04/21/2019 150mg Tablets mouth for one dose REGINA Man may repeat in 5-7 days Hydrocodone 5ml by mouth every 70ml Judi Owen 04/14/2019 Polistirex/Chlorpheni 12 hours as needed REGINA Man ramine Polistirex for cough - do not drive with this 10-8mg/5ML Suer medication can cause drowsiness Levothyroxine Sodium 1 1/2 by mouth 135tabs Kevin FSammie 03/04/2019 every day Tresa Sears 25mcg Tablets Vitamin D3 2000U 1 po qd Kevin F. 02/04/2019 Tresa Sears Rosuvastatin Calcium 1 by mouth every 90tabs Kevin FSammie 05/20/2018 day Tresa Sears 5mg Tablets Magnesium 1 by mouth every Unknown 250mg Tablets day Aspirin Childrens once a day Unknown Estradiol Cream Unknown Acyclovir 1 by mouth every Kevin F. 200mg day Tresa Sears Capsules History Medications Medrol dose-pack by mouth 1pack Kevin FSammie 03/27/2019 - 4mg Tablets as instructed, Tresa Sears 04/10/2019 take with food Hydrocodone 5mL by mouth every 70ml Judi Owen 03/20/2019 - Polistirex/Chlorphenir 8 hours as needed REGINA Man 03/30/2019 amine Polistirex for cough - do not drive with this 10-8mg/5ML Suer medication can cause drowsiness Doxycycline Hyclate one tab by mouth 20tabs J18.9 Judi Owen 03/17/2019 - 100mg twice a day REGINA Man 03/27/2019 Tablets Victoria Joshi take 2 tablets 30caps J18.9 Judi Lexie 03/17/2019 - 100mg every 8 hours as REGINA Man 03/27/2019 Capsules needed for cough Ceftin 1 by mouth twice a 16tabs Aidan Riley 02/04/2019 - 500mg Tablets day Tresa Monge 03/01/2019 Cyclobenzaprine HCL one to two tablet 60tabs M62.830 Nitza 01/12/2019 - 5mg every night at [facility] 02/03/2019 Tablets bedtime as needed Lidoderm apply to affected 3units M62.830 [place] 01/12/2019 - 5% Patches areas of pain for [facility] 02/03/2019 12 hours as needed pain Immunizations CPT Code Status Date Vaccine Reaction Lot # [id number] Given 01/12/2019 High-Dose, Influenza Virus [id number] Vacccine-fluzone 65 and older 42984 Given 12/28/2017 High-Dose, Influenza Virus Vacccine-fluzone 65 and older 63957 Given 05/14/2017 Pneumococcal Immunization [id number] 46651 Given 03/12/2017 High-Dose, Influenza Virus Vacccine-fluzone 65 and older 98702 Given 10/11/2015 Pneumococcal Conjugate Vacc-13 [id number] 27244 Given 12/04/2013 DO Not Use Split Influenza Virus [id number] Vaccine 48982 Given 01/29/2012 Zostivax [id number] 90380 Given 01/29/2012 DO Not Use Split Influenza Virus [id number] Vaccine 27545 Given 05/11/2011 DO Not Use Split Influenza Virus Vaccine 33163 Given 04/20/2011 Tdap Tetanus, W Pertussis no reaction noted [id number] 47417 Given 10/30/1999 Td Immunization, For Use In Individuals 7 Years Or Older Vital Signs Date Vital Result Comment 04/21/2019 1:21pm BP Systolic 166 mmHg BP Diastolic 82 mmHg Heart Rate 64 /min Body Temperature 98.3 F Respiratory Rate 16 /min Weight 140.50 lb 04/03/2019 11:31am BP Systolic 128 mmHg BP Diastolic 72 mmHg Heart Rate 64 /min Body Temperature 98.4 F Respiratory Rate 16 /min Weight 142.50 lb Results Test Acquired Date Facility Test Result H/L Range Note Laboratory test 03/01/2019 [facility](a) Free T4 0.73 ng/dL Low 0.75-1.54 finding TSH 8.57 mIU/L High 0.50-6.00 Laboratory test 01/12/2019 [facility](a) TSH 7.73 mIU/L High 0.50- 6.00 1 finding Free T4 0.81 ng/dL 0.75-1.54 Free T3 2.43 pg/mL 2.00-4.90 Laboratory test 11/09/2018 [facility] [place] SEE RESULT 2, 3 finding BELOW Ua - Non Micro 11/04/2018 family medicine Appearance clear (a) (607)- - Color yellow Glucose, Urine (a/[facility] [place]CTX) negative Bilirubin negative Ketones negative SP Grav 1.015 Blood negative PH 7.0 Protein negative Urobil 0.2 Nitrite negative Leukocytes (a/[facility] [place]Centrex) negative Lipid Profile 11/04/2018 [facility](a) Cholesterol 143 mg/dL 120- 200 Triglycerides 148 mg/dL 30-200 HDL Cholesterol 34 mg/dL 30-85 LDL (Calculated) 79 CALC 0-129 VLDL Cholesterol 30 mg/dL 0-50 HDL Risk Factor 4.2 CALC 0.0-4.4 Comprehensive Metabolic 11/04/2018 [facility]) Sodium 138 mEq/L 134-149 Prof Potassium 4.6 mEq/L 3.6-5.5 Chloride 104 mEq/L 94-112 Carbon Dioxide 26 mEq/L 21-32 Glucose 93 mg/dL 70-105 BUN 8 mg/dL 6-26 Creatinine 0.6 mg/dL 0.6-1.4 BUN/Creat Ratio 13.3 CALC 8.0-36.0 Calcium 9.6 mg/dL 8.6-10.2 Total Protein 8.0 g/dL 6.4-8.3 Albumin 4.6 g/dL 3.8-5.5 Globulin 3.4 g/dL 2.0-4.8 A/G Ratio 1.4 CALC 0.6-2.3 Alk. Phosphatase 85 U/L 30-110 Alt (SGPT) 12 U/L 7-35 Ast (Sgot) 19 U/L 5-34 Total Bilirubin 0.4 mg/dL 0.2-1.3 GFR Non- >60 ml/min/1.73m^ >=60 GFR >60 ml/min/1.73m^ >=60 Laboratory test 11/04/2018 [facility]) TSH 6.55 mIU/L High 0.50- 6.00 4 finding CK 67 U/L 26-140 CBC Electronic Fma 11/04/2018 [facility]) WBC 4.4 x10^3/UL 4.0- 10.0 RBC 4.18 x10^6/UL 3.93-6.00 HGB 12.8 g/dL 12.0-17.0 HCT 38 % 35-50 MCV 91.9 fL 80.0-95.0 MCH 30.6 pg 25.6-32.2 MCHC 33.3 g/dL 32.2-36.0 RDW-CV 12.4 % 11.6-14.4 PLT 161 x10^3/UL Low 163-400 5 MPV 10.5 fL 9.4-12.4 [place]# 2.22 x10^3/UL 1.56-6.13 Lymph# 1.53 x10^3/UL 1.18-3.74 [place]# 0.40 x10^3/UL 0.24-0.82 Eos # 0.2 x10^3/UL 0.0-0.5 Baso # 0.03 x10^3/UL 0.01-0.08 [place]% 50.3 % 34.0-70.0 Lymph % 34.7 % 20.0-52.0 [place]% 9.1 % 5.0-12.0 Eos% 5.0 % 0.7-7.0 Baso% 0.7 % 0.1-1.2 Urine Culture And Sensitivities 11/04/2018 [facility] [place] SEE RESULT BELOW 6 1 RESULTS VERIFIED BY REPEAT ANALYSIS 2 [id number] 3 SEE RESULT BELOW Name: HARPER EMERY : [address]: Oren Villalta MD Acct: [id number] Unit: [id number] AGE: 68 Location: [facility] Re11/09/18 SEX: F Status: DEP REF SPEC: [id number] JOE: 11/09/18- SUBM DR: Oren Villalta MD REQ: [id number] RECD: 11/09/18 STATUS: ARANZA LENZ DR: Kevin Sears MD _ ORDERED: LEVEL 4 COMMENTS: [id number] FINAL DIAGNOSIS Colon, proximal right, biopsy: -- Tubular adenoma. -- No high grade dysplasia or malignancy. CLINICAL HISTORY Screening/Surveillance for malignancy in asymptomatic patient; usual bowel habits ??? every day; diet - good POST-OPERATIVE DIAGNOSIS Colonoscopy: to cecum with ease ??? adult; floppy; one polypoid nodule; conclusions: status post resection; diverticulosis; polyp GROSS DESCRIPTION The specimen is received in formalin labeled, Biopsy Proximal Right Colon Polyp, and consists of two lindsay irregular soft tissue fragments measuring 0.2 x 0.2 x 0.1 cm and 0.3 x 0.3 by up to 0.2 cm which are submitted entirely in one cassette. Signed by and Reported on: Nitza Olivarez MD 11/10/18 0536 END OF REPORT DEPARTMENT OF PATHOLOGY, [address] [place] [address] Louie Odonnell M.D. Director [facility] # [id number] 4 consistent w/ previous results 5 consistent w/ previous results 6 SEE RESULT BELOW Name: HARPER EMERY : [address]: Kevin Sears MD Acct: [id number] Unit: [id number] AGE: 68 Location: [facility] Re11/04/18 SEX: F Status: REG REF SPEC: [id number] JOE: 11/04/18-[address]: Kevin Sears MD REQ: [id number] RECD: 11/04/18 STATUS: COMP _ SOURCE: URINE SPDESC: ORDERED: Urine Culture COMMENTS: 1 armstrong urine top tube sent [id number] Urine Source: Random Procedure Result Reported Site Urine Culture Final 11/06/18- 0845 ML No growth of clinically significant organisms * ML - Main Lab . END OF REPORT DEPARTMENT OF PATHOLOGY, [address] [place] [address] Louie Odonnell M.D. Director [facility] # [id number] Procedures Date Code Description Status 01/12/2019 [id number] Colonoscopy Completed 11/09/2018 [id number] Colonoscopy Completed 10/27/2018 [id number] Mammogram Completed 10/26/2017 [id number] Mammogram Completed 06/14/2017 [id number] Bone Mineral Density Test Completed 09/22/2016 [id number] Mammogram Completed 05/02/2015 [id number] Mammogram Completed 02/01/2014 [id number] Mammogram Completed 12/26/2013 [id number] Colonoscopy Completed 09/22/2013 [id number] Mammogram Completed 02/05/2012 [id number] Mammogram Completed 11/11/2010 [id number] Colonoscopy Completed 03/07/2010 [id number] Colonoscopy Completed 10/24/2008 [id number] Mammogram Completed 09/11/2005 42642274 Mammogram Completed Medical Devices Description No Information Available Encounters Type Date Location Provider Dx Diagnosis Office Visit 04/03/2019 [facility] Office Isabella Ríosstephen, R21 Rash and other 11:30a Afnp-C nonspecific skin eruption Office Visit 03/27/2019 [facility] Office Kevin Sears, R05 Cough 3:00p M.DSammie E03.9 Hypothyroidism, unspecified R00.2 Palpitations Office Visit 03/17/2019 1:00p [facility] Office Judi Owen J18.9 Pneumonia , Man, HEATER ROOM HELPER unspecified organism R50.9 Fever, unspecified Office Visit 03/01/2019 9:00a [facility] Office Nitza R94.6 Abnormal Nancy, BRICK CARRIER results of thyroid function studies M54.2 Cervicalgia Office Visit 02/04/2019 11:20a Main Office Aidan Riley J01.90 Acute sinusitisMariposa M.D. 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, cervicothoracic region E03.9 Hypothyroidism, unspecified Z23 Encounter for immunization Office Visit 11/04/2018 [facility] Kevin Dove E78.49 Other hyperlipidemia 10:40a Office Tresa Sears N39.0 Urinary tract infection, site not specified M85.89 Oth disrd of bone density and structure, multiple sites Z86.010 Personal history of colonic polyps Assessments Date Code Description Provider 04/21/2019 R50.9 Fever, unspecified Judi Man NP 04/21/2019 J18.9 Pneumonia, unspecified organism Judi Man NP 04/03/2019 R21 Rash and other nonspecific skin eruption Isabella Velasquez, Thuan-C 03/27/2019 R05 Cough Kevin Sears M.D. 03/27/2019 E03.9 Hypothyroidism, unspecified Kevin Sears M.D. 03/27/2019 R00.2 Palpitations Kevin Sears M.D. 03/17/2019 J18.9 Pneumonia, unspecified organism Judi Man, HEATER ROOM HELPER 03/17/2019 R50.9 Fever, unspecified Judi Man, HEATER ROOM HELPER 03/01/2019 R94.6 Abnormal results of thyroid function Nitza Cruz, [facility] studies 03/01/2019 M54.2 Cervicalgia Nitza Nancy, [facility] 02/04/2019 J01.90 Acute sinusitis, unspecified Aidan Monge M.D. 01/12/2019 M54.2 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 01/12/2019 Z23 [facility]counter for [facility] 11/11/2018 E03.9 Hypothyroidism, unspecified Kevin Sears M.D. 11/04/2018 E78.49 Other hyperlipidemia Kevin Sears M.D. 11/04/2018 N39.0 Urinary tract infection, site not Kevin Sears M.D. specified 11/04/2018 M85.89 Other specified disorders of bone density Kevin Sears M.D. and structure, [facility] [place] 11/04/2018 Z86.010 Personal history of colonic polyps Kevin Sears M.D. Plan of Treatment Future Appointment(s):05/23/2019 5:00 pm - Kevin Sears M.D. at Main Giojhv4104/21/2019 - Judi Man, NPR50.9 Fever, unspecifiedComments: Tylenol or Ibuprofen for fever/painJ18.9 Pneumonia, unspecified organismNew Medication:Levaquin 750 mg - take one tablet daily by mouth x 7 daysDiflucan 150 mg - take 1 tablet by mouth for one dose may repeat in 5-7 daysNew Xrays: Chest 2 Views, Scheduled: 04/21/19Comments:Levaquinfluids mucinex/OTC cold preparations if helpfultylenol/ibuprofen for pain/fever patient instructed to call back if condition fails to improve or worsens.AllComments:Medication Management Patient Understands medications he 's taking? Yes No Are there Barriers to Adherence? Yes No Has the patient been asked about herbal supplements and therapies, andOTC meds? Yes No Care Plan1. Patient has been queried about patient's goals/preferences and functional/ lifestyle goals at relevant visits. If relevant, describe: na2. Treatment goals as explained to the patient: above3. Are there barriers to meeting treatment goals? Yes No If Yes, please describe: disease process, comorbid conditions, polypharmacy 4. Self-Management goals as described to the patient: Yes NoAs always, we strongly encourage a healthy diet and making physical activity a part of your every day life. If you have questions about how or where to start, please contact the office. Functional Status Description No Information Available Mental Status Description No Information Available Referrals Refer to Reason for Referral Status Appt Date [place] [facility] Holter Monitor ind' palpitations jw Sent [address] [place] [address] [phone] [facility] Physical PHYSICAL THERAPY evaluation and Scheduled Therapy treatment massage and US. therapy indicated for spasm Order re-faxed. LT [address] [facility] [address] [place], [place] [id number] [phone] Derrell Villar urinary frequency jw Sent [address] [place] [id number] [phone]
[2019-04-24 17:49] LABS: ABS Lymphocytes 1.4 10^3/ul (1.0-4.8); ABS Monocytes 0.7 10^3/ul (0-0.8); ABS Neutrophils 4.4 10^3/ul (1.5-7.7); Eosinophil % 0.6 %; Hematocrit 36 % (35-47); Hemoglobin 12.1 g/dL (12.0-16.0); Lymphocyte % 21.6 %; Mean Corpuscular HGB Conc 34 g/dL (31-36); Mean Corpuscular Hemoglobin 31 pg (27-31); Mean Corpuscular Volume 90 fL (80-97); Mean Platelet Volume 8.7 fL (7.4-10.4); Platelet Count 187 10^3/uL (150-450); Red Blood Count 3.95 10^6 /uL (3.70-4.87); Red Cell Distribution Width 13 % (10-15); White Blood Count 6.7 10^3/uL (3.5-10.8)
[2019-04-24 18:15] LABS: Albumin 3.9 g/dL (3.2-5.2); BUN/Creatinine Ratio 16.7 (8-20); Calcium 9.1 mg/dL (8.6-10.3); EGFR African American 81.6 (>60); EGFR Non-African American 67.4 (>60); Globulin 3.8 g/dL (2-4); Potassium 4.3 mmol/L (3.5-5.0); Total Bilirubin 0.5 mg/dL (0.2-1.0); Total Protein 7.7 g/dL (6.4-8.9)
[2019-04-24] MEDS ORDERED: Albuterol 2.5 MG/3 ML NEB.SOL* (0.083%) INH ONE (18:36)
--- NOTE | 2019-04-24 18:37 | ED ---
Shortness of Breath - HPI Summary HPI Summary: Patient is a 68 y/o F presenting to the ED for a chief complaint of shortness of breath. Patient is present with her . On 03/12/19, she initially noticed a productive cough. She was seen at her PCPs office and had a chest- ray that showed possible pneumonia and COPD, and prescribed doxycycline. She saw her PCP again recently and diagnosed with pneumonia after a second chest x- ray and prescribed another course of antibiotics. She took a course of prednisone without relief. On 04/24/19, patient reports having dizziness and lightheadedness. Patient notes a low grade fever for the last week and left mid back pain on 04/23/19. Patient denies bilateral LE edema or pain, or chest pain. She denies recent long distance travel. PMHx of blood clots is denied. PMHx is significant for thyroid problem. 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 Patient denies tobacco use. Medications reviewed. Allergies noted. - History of Current Complaint Chief Complaint: EDUpperRespComplaint Time Seen by Provider: 04/24/19 18:21 Hx Obtained From: Patient Onset/Duration: Sudden Onset, Lasting Weeks, Still Present Timing: Constant Current Severity: Moderate Dyspnea At: Rest Aggravating Factors: Nothing Alleviating Factors: Nothing Associated Signs & Symptoms: Cough (Productive), Fever - In vitals, 97.3 F, Nasal Congestion, Dizzy - Allergy/Home Medications Allergies/Adverse Reactions: Allergies Allergy/AdvReac Type Severity Reaction Status Date / Time adhesive tape Allergy Unknown Verified 04/24/19 14:21 Reaction Details Penicillins Allergy Rash Verified 04/24/19 14:19 Sulfa (Sulfonamide Allergy Rash Verified 04/24/19 14:19 Antibiotics) Home Medications: Home Medications Acyclovir* [Zovirax 200 MG CAP*] 200 mg PO DAILY 04/24/19 [History Confirmed ] Levofloxacin TAB* [Levaquin TAB*] 750 mg PO DAILY 04/24/19 [History Confirmed ] Levothyroxine TAB* [Synthroid TAB*] 25 mcg PO DAILY 04/24/19 [History Confirmed 04/24/19] Rosuvastatin (NF) [Crestor (NF)] 5 mg PO DAILY 04/24/19 [History Confirmed 04/24] PMH/Surg Hx/FS Hx/Imm Hx Previously Healthy: Yes Endocrine/Hematology History: Reports: 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 Denies: Hx Anticoagulant Therapy, Hx Blood Disorders, Hx Diabetes Cardiovascular History: Denies: Hx Deep Vein Thrombosis, Hx Embolism, Hx Hypercholesterolemia, Hx Hypertension Respiratory History: Reports: Other Respiratory Problems/Disorders GI History: Reports: Other GI Disorders - DIVERTICULITIS- HAD SURGERY FOR- NO PROBLEMS SINCE History: Denies: Hx Dialysis, Hx Renal Disease Musculoskeletal History: Reports: Other Musculoskeletal History - 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 [place] Dr [place], R inguinal hernia repair with patch (1 YEAR AFTER COLON RESECTION) , several surgeries for endometriosis Hx Anesthesia Reactions: Yes - STATES RECEIVED MORPHINE- LOWERED RESP RATE- STATES HAD TO REVERSE THE MED Infectious Disease History: No Infectious Disease History: Denies: Hx Clostridium Difficile, Hx Hepatitis, Hx Human Immunodeficiency Virus (HIV), Hx of Known/Suspected MRSA, Hx Shingles, Hx Tuberculosis, Hx Known/ Suspected VRE, Hx Known/Suspected VRSA, History Other Infectious Disease, Traveled Outside the [place] in Last 30 Days - Family History Known Family History: Negative: Cardiac Disease, Hypertension, Diabetes, Renal Disease - Social History Lives: With Family Alcohol Use: Rare Hx Substance Use: No Substance Use Type: Reports: None Hx Tobacco Use: No Smoking Status (MU): Never Smoked Tobacco Review of Systems Positive: Fever - In vitals, 97.3 F Negative: Chest Pain Positive: Shortness Of Breath Positive: Myalgia - Positive left mid back pain; negative bilateral LE pain. Negative: Edema - Bilateral LE All Other Systems Reviewed And Are Negative: Yes Physical Exam - Summary Physical Exam Summary: Constitutional: Well-developed, Well-nourished, Alert. (-) Distressed Skin: Warm, Dry HENT: Normocephalic; Atraumatic Eyes: Conjunctiva normal Neck: Musculoskeletal ROM normal neck. (-) JVD, (-) Stridor, (-) Tracheal deviation Cardio: Rhythm regular, rate normal, Heart sounds normal; Intact distal pulses; Radial pulses are 2+ and symmetric. (-) Murmur Pulmonary/Chest wall: Effort normal. (-) Respiratory distress, (-) Wheezes, (-) Rales Abd: Soft, (-) tenderness, (-) Distension, (-) Guarding, (-) Rebound Musculoskeletal: (-) Edema Lymph: (-) Cervical adenopathy Neuro: Alert, Oriented x3 Psych: Mood and affect Normal Triage Information Reviewed: Yes Vital Signs On Initial Exam: Initial Vitals Temp Pulse Resp BP Pulse Ox 97.3 F 68 19 124/50 96 04/24/19 14:03 04/24/19 14:03 04/24/19 14:03 04/24/19 14:03 04/24/19 14:03 Vital Signs Reviewed: Yes Procedures - Sedation Patient Received Moderate/Deep Sedation with Procedure: No Diagnostics - Vital Signs Vital Signs Temp Pulse Resp BP Pulse Ox 04/24/19 17:56 97.5 F 66 16 136/45 99 04/24/19 15:34 97.4 F 61 18 112/75 98 04/24/19 14:03 97.3 F 68 19 124/50 96 - Laboratory Lab Results: Lab Results 04/24/19 04/24/19 04/24/19 Range/Units 17:37 17:37 17:37 WBC 6.7 (3.5-10.8) 10^3/uL RBC 3.95 (3.70-4.87) 10^6 /uL Hgb 12.1 (12.0-16.0) g/dL Hct 36 (35-47) % MCV 90 (80-97) fL MCH 31 (27-31) pg MCHC 34 (31-36) g/dL RDW 13 (10-15) % Plt Count 187 (150-450) 10^3/uL MPV 8.7 (7.4-10.4) fL Neut % (Auto) 66.2 % Lymph % (Auto) 21.6 % [place] % (Auto) 11.0 % Eos % (Auto) 0.6 % Baso % (Auto) 0.6 % Absolute Neuts (auto) 4.4 (1.5-7.7) 10^3/ul Absolute Lymphs (auto) 1.4 (1.0-4.8) 10^3/ul Absolute Monos (auto) 0.7 (0-0.8) 10^3/ul Absolute Eos (auto) 0.0 (0-0.6) 10^3/ul Absolute Basos (auto) 0.0 (0-0.2) 10^3/ul Absolute Nucleated RBC 0.0 10^3/ul Nucleated RBC % 0.0 Sodium 134 L (135-145) mmol/L Potassium 4.3 (3.5-5.0) mmol/L Chloride 101 (101-111) mmol/L Carbon Dioxide 26 (22-32) mmol/L Anion Gap 7 (2-11) mmol/L BUN 14 (6-24) mg/dL Creatinine 0.84 (0.51-0.95) mg/dL Est GFR ( Amer) 81.6 (>60) Est GFR (Non-Af Amer) 67.4 (>60) BUN/Creatinine Ratio 16.7 (8-20) Glucose 115 H (70-100) mg/dL Lactic Acid 1.0 (0.5-2.0) mmol/L Calcium 9.1 (8.6-10.3) mg/dL Total Bilirubin 0.50 (0.2-1.0) mg/dL AST 11 L (13-39) U/L ALT 8 (7-52) U/L Alkaline Phosphatase 84 (34-104) U/L Troponin I 0.00 (<0.03) ng/mL Total Protein 7.7 (6.4-8.9) g/dL Albumin 3.9 (3.2-5.2) g/dL Globulin 3.8 (2-4) g/dL Albumin/Globulin Ratio 1.0 (1-3) Result Diagrams: 04/24/19 17:37 04/24/19 17:37 Lab Statement: Any lab studies that have been ordered have been reviewed, and results considered in the medical decision making process. - Radiology Chest X-ray Radiology Interpretation Completed By: Radiologist Summary of Radiographic Findings: Chest X-ray IMPRESSION: No acute cardiopulmonary process by radiograph. Reviewed by Dr. Kong. Re-Evaluation - Re-Evaluation First Eval Re-Evaluation Time: 19:32 Change: Improved Comment: At 19:32, patient feels much better after using an albuterol inhaler. Course/Dx - Course Course Of Treatment: Patient is here 6 weeks of cough. Patient has been treated with antibiotic twice and a course of prednisone with no relief. Patient's never had a chest x-ray which showed pneumonia. Patient did have hyper inflation on her x-ray on Wednesday. Patient is hemodynamically stable overall well-appearing. Patient had normal breath sounds. Patient was given an albuterol treatment as a trial for her cough with vast improvement. Patient was discharged with an inhaler - Diagnoses Provider Diagnoses: Chronic cough Discharge ED - Sign-Out/Discharge Documenting (check all that apply): Patient Departure - Discharge - Discharge Plan Condition: Stable Disposition: HOME Prescriptions: Albuterol HFA INHALER* [Ventolin HFA Inhaler*] 2 puff INH Q4H PRN #1 mdi PRN Reason: cough or wheezing Patient Education Materials: Chronic Cough (ED) Referrals: Kevin Sears MD [Primary Care Provider] - Additional Instructions: PLEASE RETURN TO EMERGENCY DEPARTMENT FOR SEVERE CHEST PAIN, SEVERE TROUBLE BREATHING, OR ANY NEW OR WORSENING SYMPTOMS. Please follow up with your primary care physician. Please make all follow-ups in 1-3 days unless I advise you otherwise. Use your albuterol inhaler as prescribed. - Billing Disposition and Condition Condition: STABLE Disposition: Home - Attestation Statements Document Initiated by Radha: Yes Documenting Scribe: Prachi Brandt Provider For Whom Radha is Documenting (Include Credential): Leonides Kong MD Scribe Attestation: Prachi Joyner scribed for Leonides Kong MD on 04/24/19 at 1944. Scribe Documentation Reviewed: Yes Provider Attestation: The documentation as recorded by the Prachi tracey accurately reflects the service I personally performed and the decisions made by me, Leonides Kong MD Status of Scribe Document: Viewed
[2019-04-24 19:42] VITALS: BP 143/71
== END 2019-04-24 19:40 | disposition home or self-care (01) ==
LOC: ED 13:49
DX: R05 Cough (principal); E03.9 Hypothyroidism, unspecified; Z85.828 Personal history of other malignant neoplasm of skin; Z79.890 Hormone replacement therapy; Z79.899 Other long term (current) drug therapy; Z88.0 Allergy status to penicillin; Z88.2 Allergy status to sulfonamides
CPT/HCPCS: 36415; 71046; 80053; 83605; 83880; 84484; 85025; 99283

== ENCOUNTER 2021-02-21 22:46 | Inpatient (IN) ==
[2021-02-21 23:46] LABS: ABS Eosinophils 0.1 10^3/ul (0-0.6); ABS Lymphocytes 1.2 10^3/ul (1.0-4.8); ABS Monocytes 0.3 10^3/ul (0-0.8); ABS Neutrophils 2.5 10^3/ul (1.5-7.7); Eosinophil % 3.4 %; Hematocrit 39 % (35-47); Hemoglobin 13.2 g/dL (12.0-16.0); Lymphocyte % 28.4 %; Mean Corpuscular HGB Conc 34 g/dL (31-36); Mean Corpuscular Hemoglobin 31 pg (27-31); Mean Corpuscular Volume 90 fL (80-97); Mean Platelet Volume 9.3 fL (7.4-10.4); Platelet Count 145 10^3/uL (150-450); Red Blood Count 4.31 10^6 /uL (3.70-4.87); Red Cell Distribution Width 12 % (10-15); White Blood Count 4.2 10^3/uL (3.5-10.8)
[2021-02-22 00:03] LABS: ALT 9 U/L (7-52); AST 14 U/L (13-39); Albumin 4.5 g/dL (3.2-5.2); Albumin/Globulin Ratio 1.4 (1-3); Alkaline Phosphatase 82 U/L (35-149); Anion Gap 6 mmol/L (2-11); Blood Urea Nitrogen 25 mg/dL (6-24); CO2 Carbon Dioxide 28 mmol/L (22-32); Calcium 9.4 mg/dL (8.6-10.3); Chloride 104 mmol/L (101-111); Globulin 3.2 g/dL (2-4); Glucose 123 mg/dL (70-100); Potassium 4.1 mmol/L (3.5-5.0); Sodium 138 mmol/L (135-145); Total Protein 7.7 g/dL (6.4-8.9); eGFR CKD-EPI 62.1 (>60)
[2021-02-22 00:06] LABS: Rapid COVID-19 Molecular Undetected (Undetected)
[2021-02-22 00:11] LABS: Troponin I 0.05 ng/mL (<0.03)
[2021-02-22 02:00] LABS: TSH Ultra Thyroid Stim Horm 5.46 mcIU/mL (0.34-5.60)
[2021-02-22] MEDS: Enoxaparin 40 MG/0.4 ML SYR SUBCUT SCH (02:11)
[2021-02-22 02:43] LABS: Troponin I 0.14 ng/mL (<0.03)
[2021-02-22] MEDS ORDERED: Iohexol 350 (CONTRAST) 500 ML MDV IV ONE (03:40)
[2021-02-22] MEDS ORDERED: Albuterol HFA INHALER 8 gm MDI INH PRN (04:07)
[2021-02-22 06:16] LABS: Troponin I 0.11 ng/mL (<0.03)
[2021-02-22] MEDS: Aspirin EC 81 mg TAB.EC (enteric coated) PO SCH (08:34)
[2021-02-22] MEDS ORDERED: Cholecalciferol (VIT D3) 1,000 unit TAB PO SCH (09:00)
[2021-02-22 10:56] LABS: Magnesium 1.9 mg/dL (1.9-2.7)
[2021-02-23 06:32] LABS: ABS Eosinophils 0.2 10^3/ul (0-0.6); ABS Lymphocytes 1.3 10^3/ul (1.0-4.8); ABS Monocytes 0.4 10^3/ul (0-0.8); ABS Neutrophils 2.1 10^3/ul (1.5-7.7); Eosinophil % 5.1 %; Hematocrit 38 % (35-47); Hemoglobin 12.9 g/dL (12.0-16.0); Lymphocyte % 31.6 %; Mean Corpuscular HGB Conc 34 g/dL (31-36); Mean Corpuscular Hemoglobin 31 pg (27-31); Mean Corpuscular Volume 90 fL (80-97); Mean Platelet Volume 9.4 fL (7.4-10.4); Nucleated Red Blood Cells % 0.2; Platelet Count 140 10^3/uL (150-450); Red Blood Count 4.22 10^6 /uL (3.70-4.87); Red Cell Distribution Width 13 % (10-15)
[2021-02-23 06:54] LABS: Calcium 9.1 mg/dL (8.6-10.3); Magnesium 1.9 mg/dL (1.9-2.7); Potassium 3.9 mmol/L (3.5-5.0); eGFR CKD-EPI 76.9 (>60)
[2021-02-23] MEDS: Aspirin EC 81 mg TAB.EC (enteric coated) PO SCH (09:07)
[2021-02-23] MEDS: ISRADIPINE 5 MG PO SCH ×2 (09:07→20:55)
[2021-02-23] MEDS: Cholecalciferol (VIT D3) 1,000 unit TAB PO SCH ×2 (09:07→20:55)
[2021-02-23] MEDS: Enoxaparin 40 MG/0.4 ML SYR SUBCUT SCH (09:08)
[2021-02-24] MEDS: ISRADIPINE 5 MG PO SCH (07:58)
[2021-02-24] MEDS: Cholecalciferol (VIT D3) 1,000 unit TAB PO SCH (07:59)
[2021-02-24] MEDS: Enoxaparin 40 MG/0.4 ML SYR SUBCUT SCH (07:59)
[2021-02-24] MEDS: Aspirin EC 81 mg TAB.EC (enteric coated) PO SCH (08:00)
[2021-02-24 09:13] LABS: Calcium 9.3 mg/dL (8.6-10.3); Potassium 4.4 mmol/L (3.5-5.0); eGFR CKD-EPI 81.7 (>60)
[2021-02-24] MEDS ORDERED: Regadenoson 0.4 MG/5 ML SYRINGE ONE (11:41)
[2021-02-24 13:45] VITALS: BP 157/51
== END 2021-02-24 16:30 | disposition home or self-care (01) | DRG 313 ==
LOC: EDHOLD 22:46 → ED 22:46 → MEDTELE 02-22 15:30 → SUATTDRO 02-22 16:55
PROVIDERS: ADMIT Internal Medicine; ATTEND Hospitalist

== ENCOUNTER 2023-03-31 09:57 | Observation (INO) ==
[~2023-03-31 09:57] MED LIST: Valsartan/HCTZ 320/25(NF) TAB PO SCH
[2023-03-31 10:38] LABS: ABS Eosinophils 0.1 10^3/uL (0.0-0.5); ABS Lymphocytes 1.1 10^3/uL (1.0-4.8); ABS Monocytes 0.4 10^3/uL (0.0-0.9); ABS Neutrophils 3.4 10^3/uL (1.5-7.6); ABS Nucleated RBC 0.01 10^3/ul; Eosinophil % 2.6 %; Hematocrit 41.5 % (35-45); Hemoglobin 14.1 g/dL (11.5-14.3); Lymphocyte % 21.3 %; Mean Corpuscular Hemoglobin 30.7 pg (27-33); Mean Corpuscular Volume 90.2 fL (80-97); Mean Platelet Volume 9.5 fL (7.5-11.2); Nucleated Red Blood Cells % 0.3 %/100WBC (0.0-0.8); Platelet Count 162 10^3/uL (150-450); Red Cell Distribution Width 12.7 % (12-17); White Blood Count 5.1 10^3/uL (3.8-11.8)
[2023-03-31 10:53] LABS: INR 1.02 (0.83-1.13)
[2023-03-31 11:00] LABS: Albumin 4.8 g/dL (3.2-5.2); Albumin/Globulin Ratio 1.8 (1-3); Creatinine, Serum 0.89 mg/dL (0.51-0.95); Globulin 2.7 g/dL (2-4); Potassium 3.5 mmol/L (3.5-5.0); Total Bilirubin 0.5 mg/dL (0.2-1.0); Total Protein 7.5 g/dL (6.4-8.9); eGFR CKD-EPI 68.8 (>60)
[2023-03-31 13:27] LABS: High Sensitivity Troponin 1 Hr 6 pg/mL (<15)
[2023-03-31] MEDS ORDERED: Al Hydrox/Mg Hydrox/Simet LIQ 30 ML UDC PO ONE (15:10)
[2023-03-31] MEDS ORDERED: Enoxaparin 40 MG/0.4 ML SYR SUBCUT SCH ×2 (16:00→22:00)
[2023-04-01 06:26] LABS: ABS Eosinophils 0.1 10^3/uL (0.0-0.5); ABS Lymphocytes 1.5 10^3/uL (1.0-4.8); ABS Monocytes 0.4 10^3/uL (0.0-0.9); ABS Neutrophils 2.5 10^3/uL (1.5-7.6); ABS Nucleated RBC 0.01 10^3/ul; Hematocrit 38.4 % (35-45); Lymphocyte % 32.7 %; Mean Corpuscular Hemoglobin 30.4 pg (27-33); Mean Corpuscular Hgb Conc 33.8 g/dL (31-36); Mean Corpuscular Volume 89.8 fL (80-97); Mean Platelet Volume 9.6 fL (7.5-11.2); Nucleated Red Blood Cells % 0.2 %/100WBC (0.0-0.8); Platelet Count 139 10^3/uL (150-450); Red Blood Count 4.28 10^6/uL (3.63-4.92); Red Cell Distribution Width 12.5 % (12-17); White Blood Count 4.6 10^3/uL (3.8-11.8)
[2023-04-01] MEDS ORDERED: Regadenoson 0.4 MG/5 ML SYRINGE ONE (07:48)
[2023-04-01 07:55] LABS: Calcium 9.2 mg/dL (8.6-10.3); Creatinine, Serum 0.96 mg/dL (0.51-0.95); Magnesium 1.9 mg/dL (1.9-2.7); Potassium 3.9 mmol/L (3.5-5.0); eGFR CKD-EPI 62.9 (>60)
[2023-04-01] MEDS ORDERED: Aminophylline 25 MG/ML VIAL ONE (09:55)
[2023-04-01] MEDS ORDERED: Ondansetron 4 mg VIAL 2 MG/ML 2 ml VIAL ONE (09:55)
[2023-04-01 13:49] VITALS: BP 133/53
== END 2023-04-01 14:35 | disposition home or self-care (01) ==
LOC: EDHOLD 09:57 → ED 09:57 → MEDTELE 17:31
PROVIDERS: ADMIT Student in an Organized Health Care Education/Training Program; ATTEND Student in an Organized Health Care Education/Training Program